=== PATIENT | female | born 1930 | race Caucasian/White ===

== ENCOUNTER 2018-08-14 09:36 | Inpatient (IN) | payer MEDICARE, OTHER ==
[~2018-08-14] VITALS: Ht 167.6 cm; Wt 78.6 kg
[~2018-08-14 09:36] MED LIST: ASPI-611 PO; BACDS PO; FLUC100T9 PO; MULT-38 PO; OMEP20CA10 PO; SIMV40TA4 PO
[2018-08-14] MEDS ORDERED: normal saline 1000ML IV soln IVB ONE ×2 (09:40→11:15)
[2018-08-14] MEDS ORDERED: ondansetron/PF 4mg/2ml inj IV ONE (09:40)
[2018-08-14 10:01] LABS: BASOPHILS # (AUTO) 0.1 X10'3 (0-0.2); BASOPHILS % (AUTO) 0.7 % (0-1); EOSINOPHILS # (AUTO) 0.1 X10'3 (0-0.9); EOSINOPHILS % (AUTO) 1.3 % (0-6); HEMATOCRIT 36.9 % (35.0-45.0); HEMOGLOBIN 12.2 g/dl (12.0-16.0); LYMPHOCYTES # (AUTO) 3.4 X10'3 (1.1-4.8); LYMPHOCYTES % (AUTO) 46.3 % (21-51); MEAN CORPUSCULAR HEMOGLOBIN 31.1 PG (27.0-31.0); MEAN CORPUSCULAR HGB CONC 33.1 % (33.0-36.5); MEAN CORPUSCULAR VOLUME 94.1 FL (78-98); MEAN PLATELET VOLUME 9.1 FL (7.4-10.4); MONOCYTES # (AUTO) 0.4 X10'3 (0-0.9); MONOCYTES % (AUTO) 4.9 % (2-12); NEUTROPHILS # (AUTO) 3.4 X10'3 (1.8-7.7); NEUTROPHILS % (AUTO) 46.8 % (42-75); PLATELET COUNT 286 X10'3 (140-440); RED BLOOD COUNT 3.93 X10'6 (4.20-5.60); RED CELL DISTRIBUTION WIDTH 13.3 % (11.5-14.5); WHITE BLOOD COUNT 7.4 X10'3 (4.5-11.0)
[2018-08-14 10:16] LABS: ALANINE AMINOTRANSFERASE 22 U/L (12-78); ALBUMIN 3.4 G/DL (3.4-5.0); ALBUMIN/GLOBULIN RATIO 0.9 (1.1-1.5); ALKALINE PHOSPHATASE 80 IU/L (46-116); ANION GAP 11 (8-16); ASPARTATE AMINO TRANSFERASE 27 U/L (10-37); BILIRUBIN,TOTAL 0.3 MG/DL (0.1-1.0); BLOOD UREA NITROGEN 23 MG/DL (7-18); BUN/CREATININE RATIO 8.8 (6.6-38.0); CALCIUM 8.7 MG/DL (8.5-10.1); CHLORIDE 97 MMOL/L (99-107); CREATININE 2.61 MG/DL (0.40-0.90); GLUCOSE 150 MG/DL (70-104); POTASSIUM 3.9 MMOL/L (3.5-5.1); SODIUM 130 MMOL/L (135-145); TOTAL CARBON DIOXIDE 21.9 MMOL/L (24-32); TOTAL PROTEIN 7.1 G/DL (6.4-8.2); eGFR 17 ML/MIN
[2018-08-14 10:20] LABS: PROTHROMBIN TIME 10.3 SECONDS (9.0-12.0)
[2018-08-14] MEDS ORDERED: BUSP10TA3 PO (10:23)
[2018-08-14] MEDS ORDERED: MIDO5TAB PO (10:23)
[2018-08-14 10:24] LABS: MAGNESIUM 1.6 MG/DL (1.5-2.4)
[2018-08-14] MEDS ORDERED: normal saline 1000ml 1,000 ML IV ONE (11:30)
[2018-08-14 11:53] LABS: D-DIMER 1.29 MG/L FEU (0-0.50)
[2018-08-14] MEDS ORDERED: HYDROcodone/acetaminophen 5mg/325mg tablet PO PRN (13:00)
[2018-08-14] MEDS ORDERED: diphenhydrAMINE 25mg capsule PO PRN (13:00)
[2018-08-14] MEDS ORDERED: mag hydrox/Alum hydrox/simeth 30ml oral suspension PO PRN (13:00)
[2018-08-14] MEDS ORDERED: magnesium Cl slow-release 64mg tablet PO PRN (13:00)
[2018-08-14] MEDS ORDERED: acetaminophen 325mg tablet PO PRN (13:00)
[2018-08-14] MEDS ORDERED: potassium Cl 20 mEq SR tablet PO PRN ×2 (13:00)
[2018-08-14] MEDS ORDERED: magnesium 1gm/100ml D5W IVPB 100 ML IV PRN (13:00)
[2018-08-14] MEDS ORDERED: potassium Cl 40MEQ/NS 500ml 500 ML IV PRN ×2 (13:00)
[2018-08-14] MEDS ORDERED: magnesium hydroxide 30ml (MOM) UD suspension PO PRN (13:00)
[2018-08-14] MEDS ORDERED: magnesium 4gm in 100ml NS 100 ML IV PRN (13:00)
[2018-08-14] MEDS ORDERED: ondansetron/PF 4mg/2ml inj IV PRN (13:00)
[2018-08-14] MEDS ORDERED: non-formulary drug (Omeprazole 1 CAP) PO PRN (13:05)
[2018-08-14] MEDS ORDERED: pantoprazole 40mg Tablet.DR PO PRN (13:10)
[2018-08-14 14:59] LABS: CLARITY,URINE CLEAR (Clear); COLOR,URINE YELLOW (Yellow); GLUCOSE, URINE NEGATIVE (Neg); KETONES,URINE NEGATIVE (Neg); LEUKOCYTE ESTERASE ,URINE NEGATIVE (Neg); NITRITES, URINE NEGATIVE (Neg); OCCULT BLOOD,URINE NEGATIVE (Neg); PROTEIN,URINE NEGATIVE (Neg); UROBILINOGEN,URINE 0.2 E.U/dL (0.2-1.0)
[2018-08-14 15:00] VITALS: BP_SYST 167; BP_SYST 172; BP_DIAS 71; BP_DIAS 83
[2018-08-14 15:08] LABS: UA COLLECTION TYPE STRAIGHT CATH
[2018-08-14 19:00] VITALS: BP 118/56
[2018-08-14] MEDS ORDERED: non-formulary drug (Buspirone HCl 1 TAB) PO SCH (20:00)
[2018-08-14] MEDS: sulfamethoxazole/trimethoprim DS (800/160mg) tablet PO SCH (21:21)
[2018-08-14] MEDS: atorvastatin 20mg tablet PO SCH (21:21)
[2018-08-14] MEDS: busPIRone 5mg tablet PO SCH (21:21)
[2018-08-14 23:00] VITALS: BP_SYST 151; BP_SYST 159; BP_DIAS 55; BP_DIAS 73
[2018-08-15 03:00] VITALS: BP 156/66
[2018-08-15 06:10] LABS: BASOPHILS # (AUTO) 0.1 X10'3 (0-0.2); EOSINOPHILS # (AUTO) 0.1 X10'3 (0-0.9); EOSINOPHILS % (AUTO) 1.9 % (0-6); HEMATOCRIT 32.3 % (35.0-45.0); HEMOGLOBIN 10.4 g/dl (12.0-16.0); LYMPHOCYTES # (AUTO) 1.7 X10'3 (1.1-4.8); LYMPHOCYTES % (AUTO) 27.6 % (21-51); MEAN CORPUSCULAR HEMOGLOBIN 30.4 PG (27.0-31.0); MEAN CORPUSCULAR HGB CONC 32.1 % (33.0-36.5); MEAN CORPUSCULAR VOLUME 94.6 FL (78-98); MEAN PLATELET VOLUME 9.4 FL (7.4-10.4); MONOCYTES # (AUTO) 0.4 X10'3 (0-0.9); NEUTROPHILS # (AUTO) 3.9 X10'3 (1.8-7.7); NEUTROPHILS % (AUTO) 63.5 % (42-75); PLATELET COUNT 245 X10'3 (140-440); RED BLOOD COUNT 3.41 X10'6 (4.20-5.60); RED CELL DISTRIBUTION WIDTH 13.2 % (11.5-14.5); WHITE BLOOD COUNT 6.1 X10'3 (4.5-11.0)
[2018-08-15 06:35] LABS: ALANINE AMINOTRANSFERASE 19 U/L (12-78); ALBUMIN 2.8 G/DL (3.4-5.0); ALBUMIN/GLOBULIN RATIO 0.9 (1.1-1.5); ALKALINE PHOSPHATASE 62 IU/L (46-116); ANION GAP 11 (8-16); ASPARTATE AMINO TRANSFERASE 20 U/L (10-37); BILIRUBIN,TOTAL 0.3 MG/DL (0.1-1.0); BLOOD UREA NITROGEN 20 MG/DL (7-18); BUN/CREATININE RATIO 9.9 (6.6-38.0); CHLORIDE 105 MMOL/L (99-107); CREATININE 2.02 MG/DL (0.40-0.90); GLUCOSE 77 MG/DL (70-104); MAGNESIUM 1.6 MG/DL (1.5-2.4); POTASSIUM 4.5 MMOL/L (3.5-5.1); SODIUM 137 MMOL/L (135-145); TOTAL CARBON DIOXIDE 21.5 MMOL/L (24-32); TOTAL PROTEIN 5.9 G/DL (6.4-8.2); eGFR 23 ML/MIN
[2018-08-15 06:58] VITALS: BP 146/64
[2018-08-15] MEDS ORDERED: non-formulary drug (Multivitamin (Daily Multiple Vitamin) 1 TAB) PO SCH (08:00)
[2018-08-15] MEDS ORDERED: non-formulary drug (Aspirin (Aspir 81) 1 TAB) PO SCH (08:00)
[2018-08-15] MEDS ORDERED: enoxaparin 40mg/0.4ml syringe SUBCUT SCH (08:00)
[2018-08-15] MEDS: K and/or MAG REPLACEMENT MC SCH (08:00)
[2018-08-15] MEDS: aspirin 81mg tablet.DR PO SCH (08:05)
[2018-08-15] MEDS: multivitamins, therapeutics tablet PO SCH (08:05)
[2018-08-15] MEDS: sulfamethoxazole/trimethoprim DS (800/160mg) tablet PO SCH ×2 (08:05→19:42)
[2018-08-15] MEDS: busPIRone 5mg tablet PO SCH ×2 (08:05→19:43)
[2018-08-15] MEDS: fluconazole 100mg tablet PO SCH (10:31)
[2018-08-15] MEDS: normal saline 1000ml 1,000 ML IV SCH ×2 (11:30→19:43)
[2018-08-15 15:00] VITALS: BP 129/64
[2018-08-15 18:00] VITALS: BP 112/53
[2018-08-15] MEDS: lactobacillus rhamnosus 10,000 MMU CELLS/CAPSULE PO SCH (19:43)
[2018-08-15] MEDS: atorvastatin 20mg tablet PO SCH (21:00)
[2018-08-15 23:00] VITALS: BP 150/71
[2018-08-16 03:00] VITALS: BP 120/88
[2018-08-16 05:11] LABS: BASOPHILS % (AUTO) 0.8 % (0-1); EOSINOPHILS # (AUTO) 0.2 X10'3 (0-0.9); HEMOGLOBIN 10.3 g/dl (12.0-16.0); LYMPHOCYTES # (AUTO) 1.8 X10'3 (1.1-4.8); LYMPHOCYTES % (AUTO) 36.8 % (21-51); MEAN CORPUSCULAR HEMOGLOBIN 31.5 PG (27.0-31.0); MEAN CORPUSCULAR HGB CONC 33.1 % (33.0-36.5); MEAN CORPUSCULAR VOLUME 95.2 FL (78-98); MEAN PLATELET VOLUME 9.1 FL (7.4-10.4); MONOCYTES # (AUTO) 0.4 X10'3 (0-0.9); MONOCYTES % (AUTO) 7.2 % (2-12); NEUTROPHILS # (AUTO) 2.6 X10'3 (1.8-7.7); NEUTROPHILS % (AUTO) 51.2 % (42-75); PLATELET COUNT 216 X10'3 (140-440); RED BLOOD COUNT 3.26 X10'6 (4.20-5.60); RED CELL DISTRIBUTION WIDTH 13.1 % (11.5-14.5)
[2018-08-16 05:47] LABS: ALANINE AMINOTRANSFERASE 24 U/L (12-78); ALBUMIN 2.5 G/DL (3.4-5.0); ALBUMIN/GLOBULIN RATIO 0.8 (1.1-1.5); ALKALINE PHOSPHATASE 57 IU/L (46-116); ANION GAP 8 (8-16); ASPARTATE AMINO TRANSFERASE 32 U/L (10-37); BILIRUBIN,TOTAL 0.2 MG/DL (0.1-1.0); BLOOD UREA NITROGEN 19 MG/DL (7-18); BUN/CREATININE RATIO 10.8 (6.6-38.0); CHLORIDE 107 MMOL/L (99-107); CREATININE 1.76 MG/DL (0.40-0.90); GLUCOSE 82 MG/DL (70-104); MAGNESIUM 1.8 MG/DL (1.5-2.4); POTASSIUM 4.4 MMOL/L (3.5-5.1); SODIUM 138 MMOL/L (135-145); TOTAL CARBON DIOXIDE 23.1 MMOL/L (24-32); TOTAL PROTEIN 5.5 G/DL (6.4-8.2); eGFR 27 ML/MIN
[2018-08-16 06:00] VITALS: BP 154/95
[2018-08-16] MEDS: normal saline 1000ml 1,000 ML IV SCH (06:30)
[2018-08-16] MEDS: K and/or MAG REPLACEMENT MC SCH (08:00)
[2018-08-16] MEDS ORDERED: enoxaparin 30mg/0.3ml syringe SUBCUT SCH (08:00)
[2018-08-16] MEDS: busPIRone 5mg tablet PO SCH (08:21)
[2018-08-16] MEDS: fluconazole 100mg tablet PO SCH (08:22)
[2018-08-16] MEDS: sulfamethoxazole/trimethoprim DS (800/160mg) tablet PO SCH (08:22)
[2018-08-16] MEDS: multivitamins, therapeutics tablet PO SCH (08:22)
[2018-08-16] MEDS: lactobacillus rhamnosus 10,000 MMU CELLS/CAPSULE PO SCH (08:22)
[2018-08-16] MEDS: aspirin 81mg tablet.DR PO SCH (08:22)
== END 2018-08-16 13:22 | disposition home or self-care (01) | DRG 683 ==
LOC: ER 09:37 → ED HOLD 12:59 → EDBEDREQ 14:00 → PCU 3S 15:23
PROVIDERS: ADMIT Internal Medicine; ATTEND Family Medicine
DX: N17.9 Acute kidney failure, unspecified (principal); E87.1 Hypo-osmolality and hyponatremia; I95.9 Hypotension, unspecified; D64.9 Anemia, unspecified; E86.0 Dehydration; E78.00 Pure hypercholesterolemia, unspecified; T36.8X5A Adverse effect of other systemic antibiotics, initial encounter; N18.3 Chronic kidney disease, stage 3 (moderate); E78.5 Hyperlipidemia, unspecified; G89.29 Other chronic pain; M54.9 Dorsalgia, unspecified; Z90.49 Acquired absence of other specified parts of digestive tract; Z88.8 Allergy status to other drugs, medicaments and biological substances; Z79.899 Other long term (current) drug therapy; Z79.82 Long term (current) use of aspirin; Z87.891 Personal history of nicotine dependence; Z82.41 Family history of sudden cardiac death; Y92.89 Other specified places as the place of occurrence of the external cause
CPT/HCPCS: 36415; 71045; 80053; 81003; 83735; 83880; 84145; 84484; 85025; 85379; 85610; 87070; 93005; 96361; 96374; 99285; G0378; J1650; J2405; J7030